=== PATIENT | male | born 1950 ===

== ENCOUNTER 2016-07-26 12:38 | Outpatient (CLI) | payer MEDICARE ==
--- NOTE | 2016-07-26 14:42 | Fluoroscopy Report ---
Modified barium swallow: Speech therapy gave the patient several liquid consistencies. Fluoroscopy in the lateral position demonstrated uncoordinated swallowing with incomplete passage of the contrast in the esophagus below the vocal cord level. No aspiration identified.
== END 2016-07-26 12:39 | disposition home or self-care (01) ==
LOC: EDSEX 12:38 → PT 12:38
PROVIDERS: ATTEND Internal Medicine Gastroenterology
DX: K94.23 Gastrostomy malfunction (principal)
CPT/HCPCS: 74230; 92611; G8996; G8997